=== PATIENT | female | born 1990 | race Caucasian/White ===

== ENCOUNTER 2019-02-16 21:08 | Emergency (ER) | payer OTHER ==
[~2019-02-16] VITALS: Ht 175.3 cm; Wt 159.2 kg
[2019-02-16 21:16] VITALS: Ht 175.3 cm; Wt 159.2 kg
[2019-02-16] MEDS ORDERED: BEN50 PO (23:26)
[2019-02-16] MEDS ORDERED: HC30CR25 TOP (23:26)
[2019-02-16] MEDS ORDERED: DIPHENHYDRAMINE 50 MG CAP PO ONE (23:30)
[2019-02-17 00:32] VITALS: BP 138/79; PULSE 86; RESP 18
--- NOTE | 2019-02-17 03:01 | ERD ---
ER Documentation Chief Complaint Chief Complaint BILAT RASH ON FEET X'S 2 DAYS HPI 28-year-old female presented to ED for bilateral rash on feet x2 days. Patient states she is been under a lot of stress lately and has been seeking treatment by psychiatrist for anxiety. Patient denies any homicidal suicidal ideation. Patient states this rash is never happened before area patient denies any new lotions or foreign contacts. Patient cannot remember any aggravating factors. Patient states that it itches and rates the itching as 6 out of 10. Patient is afebrile with vitals within normal limits. Patient denies any allergies to medication ROS All systems reviewed and are negative except as per history of present illness. Medications Home Meds Active Scripts Hydrocortisone* Topical (Hydrocortisone* Topical) 2.5%-28.3 Gm Cream..g., 1 APPLIC TOP BID, #1 TUB Prov:GENA PIZARRO PA-C 02/16/19 Diphenhydramine Hcl* (Benadryl*) 50 Mg Cap, 50 MG PO Q6 PRN for AGITATION, #30 CAP Prov:GENA PIZARRO PA-C 02/16/19 Allergies Allergies: Coded Allergies: No Known Allergy (Unverified , 02/16/19) PMhx/Soc Medical and Surgical Hx: pt denies Medical Hx, pt denies Surgical Hx Hx Alcohol Use: No Hx Substance Use: No Hx Tobacco Use: No Smoking Status: Never smoker FmHx Family History: No diabetes, No coronary disease, No other Physical Exam Vitals Vital Signs Date Temp Pulse Resp B/P (MAP) Pulse Ox O2 O2 Flow FiO2 Time Delivery Rate 02/17/19 98.4 86 18 138/79 98 Room Air 00:32 (98) 02/16/19 97.3 121 22 146/83 97 21:16 (104) Physical Exam Const: No acute distress Resp: Clear to auscultation bilaterally Cardio: Regular rate and rhythm, no murmurs Abd: Soft, non tender, non distended. Normal bowel sounds Skin: Small multiple macule erythematous lesions that appear irritated from patient scratching. No pus, discharge or streaking in the lesions Back: No midline or flank tenderness Ext: No cyanosis, or edema Results 24 hrs Current Medications Medications Dose Sig/Lv Start Time Status Last (Trade) Ordered Route PRN Stop Time Admin Dose Reason Admin 50 mg ONCE ONCE 02/16/19 DC 02/16/19 Diphenhydrami PO 23:30 23:30 ne HCl 02/16/19 23:31 (Benadryl) Procedures/MDM Medications given in ER: Benadryl Patient tolerated medication well with no adverse reactions. Patient reported improvement in pain. Medical decision makin-year-old female presented to ED for rash from bilateral aspects of her feet and lower legs. Patient denies any aggravating factors, new lotions and cannot recall any thing that triggered the rash. Patient states she is been under a l ot of stress recently. The rash appears noninfectious and it looks a little irritated from where she is been scratching. I treated the patient with Benadryl in the ED and upon reevaluation she states she feels much better. Advised the patient she should follow-up with her primary care provider if the rash continues. But I would like to treat her outpatient with hydrocortisone a nd Benadryl. At this time I have low suspicion for anaphylactic, Kawasaki disease, scarlet fever, necrotizing fasciitis, sepsis, gangrene, Av-Samir syndrome, toxic epidural necrolysis, abscess, cellulitis, herpes zoster, viral exanthem, anaphylaxis, allergic reaction, allergic contact dermatitis, irritant contact dermatitis, fungal infection, insect bite, impetigo, dermatitis. Advised patient symptoms worsen return to ER immediately. The patient is agreement treatment plan and plans to follow-up with her primary care provider this week. All questions were answered upon discharge Prescription for home: Hydrocortisone topical Benadryl I have discussed with the patient proper use and common side effects to expert with the medication . I advised the patient/family to speak with the pharmacist dispensing the medication to be advised of any potential drug interactions with other medication or supplements they may be taking. Discharge: At this time, patient is stable for discharge and outpatient management. I have instructed the patient to follow-up with his\her primary care physician in 1 to 2 days. I have discussed with the patient the possibility of needing to see a specialist for further work-up and imaging studies if symptoms persist. I have instructed the patient to promptly return to the ER for any new or worsening symptoms including increased pain, fever, nausea, vomiting, weakness or LOC. The patient and\or family expressed understanding of and agreement with this plan. All questions were answered. Home care instructions were provided. Disclaimer: Inadvertent spelling and grammatical errors are likely due to EHR\dictation software use and do not reflect on the overall quality of patient care. Also, please note that the electronic time recorded on the note does not necessarily reflect the actual time of the patient encounter. Departure Diagnosis: Primary Impression: Rash Patient Instructions: Self-Care for Skin Rashes Referrals: [facility] YOU HAVE RECEIVED A MEDICAL SCREENING EXAM AND THE RESULTS INDICATE THAT YOU DO NOT HAVE A CONDITION THAT REQUIRES URGENT TREATMENT IN THE EMERGENCY DEPARTMENT. FURTHER EVALUATION AND TREATMENT OF YOUR CONDITION CAN WAIT UNTIL YOU ARE SEEN IN YOUR DOCTORS OFFICE WITHIN THE NEXT 1-2 DAYS. IT IS YOUR RESPONSIBILITY TO MAKE AN APPOINTMENT FOR FOLOW-UP CARE. IF YOU HAVE A PRIMARY DOCTOR --you should call your primary doctor and schedule an appointment IF YOU DO NOT HAVE A PRIMARY DOCTOR YOU CAN CALL OUR PHYSICIAN REFERRAL HOTLINE AT IF YOU CAN NOT AFFORD TO SEE A PHYSICIAN YOU CAN CHOSE FROM THE FOLLOWING [facility] [address] [address] [facility]. [facility] [address] [facility]. [facility] [address] [facility] [address] [facility] [address] [facility]. [facility] [address] [facility]. [facility] YOU HAVE RECEIVED A MEDICAL SCREENING EXAM AND THE RESULTS INDICATE THAT YOU DO NOT HAVE A CONDITION THAT REQUIRES URGENT TREATMENT IN THE EMERGENCY DEPARTMENT. FURTHER EVALUATION AND TREATMENT OF YOUR CONDITION CAN WAIT UNTIL YOU ARE SEEN IN YOUR DOCTORS OFFICE WITHIN THE NEXT 1-2 DAYS. IT IS YOUR RESPONSIBILITY TO MAKE AN APPOINTMENT FOR FOLOW-UP CARE. IF YOU HAVE A PRIMARY DOCTOR --you should call your primary doctor and schedule and appointment IF YOU DO NOT HAVE A PRIMARY DOCTOR YOU CAN CALL OUR PHYSICIAN REFERRAL HOTLINE AT . IF YOU CAN NOT AFFORD TO SEE A PHYSICIAN YOU CAN CHOSE FROM THE FOLLOWING [facility] INSTITUTIONS: [facility] [address] [place] [address] [facility] [address] [place] [address] [facility] [address] [place] [address] Additional Instructions: Call your primary care doctor TOMORROW for an appointment during the next 1-2 days.See the doctor sooner or return here if your condition worsens before your appointment time. GENA PIZARRO PA-C Feb 17, 2019 03:01
== END 2019-02-17 00:33 | disposition home or self-care (01) ==
LOC: FTE 21:08
DX: R21 Rash and other nonspecific skin eruption (principal)
CPT/HCPCS: 99282